=== PATIENT | female | born 1995 | race Caucasian/White ===

== ENCOUNTER 2020-08-31 07:30 | Emergency (ER) | payer BC, OTHER ==
--- NOTE | 2020-08-31 07:40 | ED EENT ---
History of Present Illness General Stated Complaint: TIRED | ACHES History of Present Illness Date Seen by Provider: Aug 31, 2020 Time Seen by Provider: 07:40 Initial Comments 25-year-old female presents for a medication refill. Patient reports that she is here from [facility] in the area visiting family. That she forgot her Lyrica back at home. Patient reports she go to be here for 10 days. She has a history of Riya-Danlos syndrome and fibromyalgia. Takes 150 mg 3 times a day. Patient reports that her last dose was yesterday morning and then when she got down here she realized she had forgotten it. Patient is requesting medication refill for why she is here. Allergies and Home Medications Allergies Coded Allergies: cefprozil (Verified Allergy, Unknown, hives, 08/31/20) Home Medications Pregabalin 150 Mg Capsule, 150 MG PO TID Prescribed by: HARINI JUSTIN on 08/31/20 0800 Patient Home Medication List Home Medication List Reviewed: Yes Review of Systems Review of Systems Constitutional: see HPI; No chills, No fever Eyes: No Symptoms Reported Nose: no symptoms reported Mouth: no symptoms reported Throat: no symptoms reported Cardiovascular: no symptoms reported Musculoskeletal: see HPI Skin: no symptoms reported Neurological: No Symptoms Reported Past [id number] Hx Past Med/Social Hx: Reviewed Nursing Past Med/Soc Hx Physical Exam Vital Signs Vital Signs - First Documented 08/31/20 07:42 Temp 36.6 Pulse 108 Resp 16 B/P (MAP) 130/85 (100) Pulse Ox 100 Height, Weight, BMI Height: '" Weight: lbs. oz. kg; BMI Method: General Appearance: no apparent distress Eyes: bilateral eye normal inspection Ears: bilateral ear auricle normal Cardiovascular: normal peripheral pulses, regular rate, rhythm Respiratory: lungs clear, normal breath sounds Gastrointestinal: non tender, soft Neurologic/Psychiatric: alert, normal mood/affect, oriented x 3 Skin: normal color, warm/dry Progress/Results/Core Measures Results/Orders Vital Signs/I&O 08/31/20 07:42 Temp 36.6 Pulse 108 Resp 16 B/P (MAP) 130/85 (100) Pulse Ox 100 Departure Impression Primary Impression: Encounter for medication refill Disposition: HOME, SELF-CARE Condition: Stable Departure-Patient Inst. Referrals: NO,LOCAL PHYSICIAN (PCP/Family) Primary Care Physician Scripts Pregabalin (Lyrica) 150 Mg Capsule 150 MG PO TID, #30 CAP Prov: HARINI JUSTIN DO 08/31/20 HARINI JUSTIN DO Aug 31, 2020 07:40
[2020-08-31 07:42] VITALS: BP 130/85
[2020-08-31] MEDS ORDERED: PREG150C PO (07:58)
== END 2020-08-31 08:08 | disposition home or self-care (01) ==
LOC: ER FS 07:33
DX: Z76.0 Encounter for issue of repeat prescription (principal)
CPT/HCPCS: 99281